=== PATIENT | female | born 1990 | race Caucasian/White ===

== ENCOUNTER 2018-10-22 13:14 | Emergency (ER) | payer OTHER ==
[2018-10-22 13:30] VITALS: BP 96/64; PULSE 66; TEMP 97.5; BMI 19.1
--- NOTE | 2018-10-22 13:41 | PDOC ---
Attending Attestation - Resident Resident Name: Inder Pringle - ED Attending Attestation I have performed the following: I have examined & evaluated the patient, The case was reviewed & discussed with the resident, I agree w/resident's findings & plan, Exceptions are as noted - HPI HPI: 10/22/18 13:39 28y F hx of familial dyautonmia, seizure disorder presents with L ankle pain since last night. pt states she started having mild L ankle pain since last night, no history of falls or injuries. Pt normally gets around wwith a wheel chair, but can ambulate with a walker to support herself. Denies any overt trauma or falls or other acute process related to onset of pain. No other pain or injuries. exam: general: no acute distress extremity: b/l blanchable erythema/hyperpigmentation, cap refill approx 1.5 sec , dp pulses symmetric b/l, mild ttp inferior to medial malleolus of L foot, no obvious injury, ecchymosis, crepitus suspect msk cause - no signs of infection will give tylenol for pain xray to r/o fx if neg anticipate supportive care
--- NOTE | 2018-10-22 14:16 | PDOC ---
History of Present Illness - General Chief Complaint: Pain, Acute Stated Complaint: right ankle pain Time Seen by Provider: 10/22/18 13:27 History Source: Patient Exam Limitations: No Limitations - History of Present Illness Initial Comments: 10/22/18 15:33 28 yo female pmh sig for famililial dysautonomia presents to the ED with right foot pain for 1 day. Pt denies recent trauma or inciting event that led to sudden onset pain. Pain is located over the right medial malleolus described as sharp, non radiating and made worse with ambulation. Due to pts genetic disorder , she does not sense pain well but today is localizing pain. Of note, pts right foot has been abducted with correction attempted, no acute change on foot/ankle positioning today and father only notes mild swelling around medial malleolus which is new. Pt denies changes in sensation, excessive new coldness or strength deficits into the right foot. Pt is able to ambulate with a rolling walker at home but has had increased difficulty today due to pain. Past History - Past Medical History Allergies/Adverse Reactions: Allergies Allergy/AdvReac Type Severity Reaction Status Date / Time No Known Allergies Allergy Verified 10/22/18 13:20 Home Medications: Ambulatory Orders Pregabalin [Lyrica] 50 mg PO BID 12/12/12 Albuterol 0.083% Nebulizer Ifrah [Ventolin 0.083% Nebulizer Soln -] 1 amp NEB BID 10/22/18 Ipratropium 0.02% Nebulizer [Atrovent] 1 neb NEB BID 10/22/18 clonazePAM [Klonopin -] 0.25 mg PO HS 10/22/18 clonazePAM [Klonopin -] 0.5 mg PO DAILY 10/22/18 levETIRAcetam [Keppra Oral Solution -] 0 mg PO BID 10/22/18 COPD: No Other medical history: familiadysaoutonomia - Surgical History Abdominal Surgery: Yes (GASTROSTOMY) - Immunization History Immunization Up to Date: Yes - Suicide/Smoking/Psychosocial Hx Smoking Status: No Smoking History: Never smoked Number of Cigarettes Smoked Daily: 0 Hx Alcohol Use: No Drug/Substance Use Hx: No Substance Use Type: None Review of Systems - Review of Systems Constitutional: No: Chills, Fever Respiratory: No: Shortness of Breath Cardiac (ROS): Yes: Edema. No: Chest Pain ABD/GI: No: Constipated, Diarrhea, Nausea, Vomiting : No: Burning, Dysuria Musculoskeletal: No: Back Pain Integumentary: Yes: Other (ankle swelling). No: Change in Color Neurological: No: Numbness, Tingling, Weakness, Ataxia *Physical Exam - Vital Signs Last Vital Signs Temp Pulse Resp BP Pulse Ox 97.5 F L 66 16 96/64 97 10/22/18 13:15 10/22/18 13:15 10/22/18 13:15 10/22/18 13:15 10/22/18 13:15 - Physical Exam General Appearance: Yes: Nourished, Appropriately Dressed HEENT: positive: EOMI Respiratory/Chest: positive: Lungs Clear, Normal Breath Sounds. negative: Accessory Muscle Use Cardiovascular: positive: Regular Rhythm, Regular Rate. negative: Edema, JVD, Murmur Vascular Pulses: Dorsalis-Pedis (R): 3+, Doralis-Pedis (L): 3+ Gastrointestinal/Abdominal: positive: Flat, Soft. negative: Pulsatile Mass Extremity: positive: Normal Capillary Refill, Pelvis Stable, Erythema (at baseline, bilateral feet), Other (no fevers, excessive swelling or warmth, pt able to dorsi and plantar flex without difficulty and with equal strength/ sensation and pulses when compared bilaterally). negative: Calf Tenderness Integumentary: positive: Dry, Warm Neurologic: positive: Fully Oriented, Alert, Normal Mood/Affect, Normal Response , Motor Strength 5/5 Medical Decision Making - Medical Decision Making 28 yo female pmh sig for famililial dysautonomia presents to the ED with right foot pain for 1 day. Pt denies recent trauma or inciting event that led to sudden onset pain. Pain is located over the right medial malleolus described as sharp, non radiating and made worse with ambulation. Due to pts genetic disorder , she does not sense pain well but today is localizing pain. Of note, pts right foot has been abducted with correction attempted, no acute change on foot/ankle positioning today and father only notes mild swelling around medial malleolus which is new. Pt denies changes in sensation, excessive new coldness or strength deficits into the right foot. Pt is able to ambulate with a rolling walker at home but has had increased difficulty today due to pain. Vitals are within pts normal limit as per previous records AOX3, NAD DDX INLT: ankle fracture, septic joint (no fevers, excessive swelling or warmth , pt able to dorsi and plantar flex without difficulty and with equal strength/ sensation and pulses when compared bilaterally) muscle strain/sprain right foot and ankle x ray ordered, shows no acute fracture or excessive swelling noted at this time Pt right ankle is in excessive abduction at rest and likely puts a negative biomechanical strain on the joints/muscles and tendons. Rest with ice and elevation recommended at this time. Referral to Orthopedics for further care if pain does not resolve. Also told to return to the ER if pain acutely worsens to come back to the ER for possible CT Pt and father express understanding of plan Fathers cell [phone] *DC/Admit/Observation/Transfer Diagnosis at time of Disposition: Foot pain, right - Discharge Dispostion Disposition: HOME Condition at time of disposition: Stable Decision to Admit order: No - Referrals Referrals: Farnk Rudd DO [Staff Physician] - - Patient Instructions Printed Discharge Instructions: DI for Foot Sprain Additional Instructions: Please see your primary Doctor within the next 48 hours. Use over the counter Tylenol or Motrin for pain as needed every 4-6 hours. Rest, Ice/heat, Elevate and Compress the right foot for the next 1 week. If the pain continues, call the Orthopedic Surgeon referred to you to make an appointment. Return to the ER for new or concerning symptoms including but not limited to: inability to bare weight, excessive pain not relieved by over the counter medication, high fevers. Thank you - Post Discharge Activity
== END 2018-10-22 15:51 | disposition home or self-care (01) ==
LOC: FER 13:14
DX: M79.671 Pain in right foot (principal); G90.1 Familial dysautonomia [Riley-Day]
CPT/HCPCS: 73610-TC-RT-FY; 99281-25